=== PATIENT | male | born 1940 | race Caucasian/White ===

== ENCOUNTER 2017-08-10 14:16 | Inpatient (IN) | payer MEDICARE, OTHER ==
[~2017-08-10] VITALS: Ht 188 cm; Wt 110.7 kg
--- NOTE | ~2017-08-10 | CN ---
PATIENT NAME:AIDEN SHEA MEDICAL RECORD: [id number] : 38 LOCATION:D. D.2136 ADMIT DATE: 08/10/17 ACCOUNT: [id number] CONSULTING PHYSICIAN: RIMA SANTIAGO MD REFERRING PHYSICIAN: LUIS JENKINS MD DATE OF CONSULTATION: 08/13/2017 CONSULT REQUESTING PHYSICIAN: Stephanie Teresa MD REASON FOR CONSULTATION: Pulmonary hypertension and COPD. HISTORY OF PRESENT ILLNESS: Mr. Shea is a 77-year-old gentleman who has history of end-stage renal disease. The patient was admitted for shortness of breath and swelling of the lower extremities. He denies any fever and chills. No night sweats. There is no wheezing. REVIEW OF THE SYSTEMS: As in history of present illness. PAST MEDICAL HISTORY: 1. COPD. 2. History of pneumonia. 3. Congestive heart failure. 4. Hypertension. 5. Edema. 6. Gastroesophageal reflux disease. PAST SURGICAL HISTORY: 1. Herniorrhaphy. 2. Appendectomy. 3. Left arm fistula placement. ALLERGIES: HE IS ALLERGIC TO ROCEPHIN AND DOXYCYCLINE. MEDICATIONS: He is on Advair inhaler. His other medications are reviewed. PERSONAL AND SOCIAL HISTORY: The patient is still smoking cigar off and on. He is nondrinker. FAMILY HISTORY: Significant for cardiovascular disease and cancer. PHYSICAL EXAMINATION: GENERAL: Now, the patient is lying comfortably. He is not in acute distress. VITAL SIGNS: Blood pressure is 124/60, pulse is 86, respiration is 16, temperature 97.5, SpO2 is 96% on 3 liters nasal cannula. HEENT: Conjunctivae are pink. Sclerae not icteric. NECK: Supple. No JVD. CHEST: The chest excursion is minimal on both sides. There is no wheeze and no rale. The excursion is minimal on the right side. There is crackle on the right side. HEART: Rate and rhythm regular daily. There is grade III/ systolic murmur at aortic area. ABDOMEN: Abdomen is soft. Bowel sounds present. No hepatosplenomegaly. RECTAL: Deferred. EXTREMITIES: No cyanosis. No clubbing. No pedal edema. SKIN: The skin is warm. Normal turgor. CONSULT REPORT [id number] AIDEN SHEA CENTRAL NERVOUS SYSTEM: The patient is awake and alert. There are no obvious cranial nerve abnormalities. The gait was not tested. CHEST RADIOGRAPH: There is elevated right hemidiaphragm. There is atelectasis in the lower lobe. CBC; WBC 6.1, hemoglobin 9.3, hematocrit 27.6, platelet count 116. IMPRESSION: 1. Chronic hypoxic respiratory failure. 2. Zjvclcir-cd-swyraa pulmonary hypertension secondary to severe aortic stenosis. 3. COPD without exacerbation. 4. 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 5. End-stage renal disease. 6. Anemia secondary to chronic kidney disease. RECOMMENDATION: 1. Continue Advair inhaler. Start albuterol/ipratropium nebulizer. 2. Get CT scan of the chest with contrast to rule out any obstructive cause of the right lower lobe. The patient will need outpatient PFTs. As the patient has severe aortic stenosis, the pulmonary hypertension is most likely secondary to aortic stenosis. He needs further workup for the pulmonary hypertension. Dr. Teresa, thank you for involving me in the care of Mr. Shea. TRANSINT:[id number] Voice Confirmation ID: [id number] DOCUMENT ID: [id number] RIMA SANTIAGO MD CC: STEPHANIE TERESA MD [id number] DICTATION DATE: 08/13/17 1615 SHELL MACHINE OPERATOR: 08/13/17 1753 ADM IN [place] [id number] [place] [id number]
--- NOTE | ~2017-08-10 | OP ---
PATIENT NAME: AIDEN ESPITIA MEDICAL RECORD: [id number] :38 LOCATION:D. D.2136 ADMISSION DATE:08/10/17 SURGEON: RIMA SANTIAGO MD DATE OF OPERATION: 08/15/2017 PROCEDURE: Fiberoptic bronchoscopy. INDICATION: Mr. Espitia is a 77-year-old gentleman who has an abnormal chest radiograph. CT scan confirmed atelectasis and infiltrate in the right lower lobe with air bronchogram. Fiberoptic bronchoscopy was carried out to inspect the airway for any obstruction as well as to obtain specimens for culture and sensitivity. MONITORING: EKG, pulse, and blood pressure were monitored throughout the procedure. MEDICATIONS: Versed 4 mg IV in divided doses, morphine 4 mg times 1, atropine 0.6 mg times 1, fentanyl 50 mcg times 1. PROCEDURE IN DETAIL: After obtaining conscious sedation, fiberoptic bronchoscope was easily passed through the mouth. The epiglottis was normal. The vocal cords were normal, moving equally on phonation. The pyriform sinuses were normal. The main trachea was normal. The andrew was sharp. There was total occlusion with coughing exploration of the right main bronchus. No endobronchial lesion was seen. There were only 2 segments to the right upper lobe. The bronchus intermedius was normal. There was root to main tree, right middle lobe segment. There were bronchitic changes of the lower segments. There was also bronchomalacia. With expiration and coughing, the right lower lobe segment totally occluded. No endobronchial lesion was seen as such. The left main bronchus was normal. There was also bronchomalacia. No endobronchial lesion was seen. Specimen washing was obtained for routine culture and sensitivity, AFB and fungus and cytology. The patient will need a repeat CT scan of the chest after 3 months. TRANSINT:[id number] Voice Confirmation ID: [id number] DOCUMENT ID: [id number] RIMA SANTIAGO MD CC: JAZMIN AGUILAR [id number] DICTATION DATE: 08/15/17 1453 CLINICAL STAFF EDUCATOR: 08/15/17 1532 ADM IN [place] [id number]
[~2017-08-10 14:16] MED LIST: ASPIRIN81 MG PO; B-12 DOTS500 MCG PO; DOXYCYCLINE HY100 M2 PO; FISH OIL 1,2001 CAP PO; FOLIC ACID1 MG PO; KENALOG 0.1 % O15 GM TOPICAL; LASIX40 MG PO; LOPRESSOR25 MG PO; PLAVIX75 MG PO; TOPROL XL100 MG PO; TOPROL XL25 MG PO; TUMS500 MG PO; ULTRAM50 MG PO; VITAMIN B650 MG PO; VITAMIN D31000 UNIT PO; ZOCOR40 MG PO; ZYLOPRIM100 MG PO
[2017-08-10 17:43] VITALS: BP 107/54; BMI 31.5
[2017-08-10] MEDS ORDERED: ZYLOPRIM100 MG PO (21:16)
[2017-08-10] MEDS ORDERED: SYMBICORT 16010.2 GM INH (21:17)
[2017-08-10] MEDS ORDERED: BENADRYL25 MG PO (21:18)
[2017-08-10] MEDS ORDERED: FLUTICASONE PRO16 GM NASAL (21:19)
[2017-08-10 21:39] VITALS: BP 117/51
[2017-08-11 03:30] VITALS: BP 123/51
[2017-08-11 08:56] VITALS: BP 121/47
[2017-08-11 12:15] VITALS: BP 114/61
[2017-08-11 13:51] VITALS: Ht 188 cm; Wt 110.7 kg
[2017-08-11 19:00] VITALS: BP 119/42
[2017-08-12 04:00] VITALS: BP 102/46
[2017-08-12 06:10] LABS: BASOPHILS 0.2 % (0-2); EOSINOPHILS 11.6 % (0-7); HEMATOCRIT 29.1 % (42.0-54.0); HEMOGLOBIN 9.5 g/dL (13.5-17.5); IMMATURE GRANULOCYTES 0.3 % (0-5); LYMPHOCYTES 13.8 % (15-50); MCHC 32.6 g/dL (31.0-37.0); MEAN PLATELET VOLUME 10.7 fL (7.4-10.4); MONOCYTES 13.5 % (2-11); NEUTROPHILS 60.6 % (40-80); RBC 2.88 10x6/uL (4.20-6.10); RDW 13.5 % (11.5-14.5); WBC 6.2 10x3/uL (4.8-10.8)
[2017-08-12 06:13] LABS: PLATELET COUNT 127 10x3/uL (130-400)
[2017-08-12 06:36] LABS: ALBUMIN 2.9 g/dL (3.4-5.0); ANION GAP 15.4 mmol/L (8-16); BILIRUBIN - TOTAL 0.3 mg/dL (0.2-1.3); CALCIUM 8.2 mg/dL (8.5-10.1); CARBON DIOXIDE 27.4 mmol/L (21.0-32.0); CREATININE - SERUM 8.4 mg/dL (0.6-1.3); PHOSPHOROUS 5.9 mg/dL (2.5-4.9); POTASSIUM - SERUM 4.8 mmol/L (3.5-5.1); PROTEIN - SERUM 6.2 g/dL (6.4-8.2)
[2017-08-12 08:23] VITALS: BP 100/54
[2017-08-12 11:35] VITALS: BP 122/47
[2017-08-12 22:25] VITALS: BP 122/57
[2017-08-13 01:27] VITALS: BP 121/53
[2017-08-13 06:26] LABS: BASOPHILS 0.2 % (0-2); EOSINOPHILS 9.8 % (0-7); HEMATOCRIT 27.6 % (42.0-54.0); HEMOGLOBIN 9.3 g/dL (13.5-17.5); IMMATURE GRANULOCYTES 0.3 % (0-5); LYMPHOCYTES 14.5 % (15-50); MCH 33.7 pg (26.0-34.0); MCHC 33.7 g/dL (31.0-37.0); MEAN PLATELET VOLUME 10.3 fL (7.4-10.4); MONOCYTES 9.3 % (2-11); NEUTROPHILS 65.9 % (40-80); PLATELET COUNT 116 10x3/uL (130-400); RBC 2.76 10x6/uL (4.20-6.10); RDW 13.3 % (11.5-14.5); WBC 6.1 10x3/uL (4.8-10.8)
[2017-08-13 06:28] VITALS: BP 138/56
[2017-08-13 07:05] LABS: ALBUMIN 2.8 g/dL (3.4-5.0); BILIRUBIN - TOTAL 0.3 mg/dL (0.2-1.3); CALCIUM 8.2 mg/dL (8.5-10.1); CARBON DIOXIDE 28.2 mmol/L (21.0-32.0); CREATININE - SERUM 7.1 mg/dL (0.6-1.3); POTASSIUM - SERUM 4.2 mmol/L (3.5-5.1); PROTEIN - SERUM 5.9 g/dL (6.4-8.2)
[2017-08-13 08:16] VITALS: BP 91/43
[2017-08-13 11:43] VITALS: BP 121/50
[2017-08-13 14:24] LABS: HEPATITIS C ANTIBODY <0.1 (0.0-0.9)
[2017-08-13 15:40] VITALS: BP 124/60
[2017-08-13 19:00] VITALS: BP 142/68
[2017-08-14 00:35] VITALS: BP 121/56
[2017-08-14 04:00] VITALS: BP 150/74
[2017-08-14 06:08] LABS: BASOPHILS 0.2 % (0-2); EOSINOPHILS 6.5 % (0-7); HEMATOCRIT 27.6 % (42.0-54.0); HEMOGLOBIN 9.2 g/dL (13.5-17.5); IMMATURE GRANULOCYTES 0.5 % (0-5); LYMPHOCYTES 13.9 % (15-50); MCH 33.3 pg (26.0-34.0); MCHC 33.3 g/dL (31.0-37.0); MEAN PLATELET VOLUME 10.4 fL (7.4-10.4); NEUTROPHILS 68.9 % (40-80); PLATELET COUNT 128 10x3/uL (130-400); RBC 2.76 10x6/uL (4.20-6.10); RDW 13.5 % (11.5-14.5); WBC 6.4 10x3/uL (4.8-10.8)
[2017-08-14 06:29] LABS: ALBUMIN 2.6 g/dL (3.4-5.0); ANION GAP 15.7 mmol/L (8-16); BILIRUBIN - TOTAL 0.34 mg/dL (0.2-1.3); CALCIUM 8.2 mg/dL (8.5-10.1); CARBON DIOXIDE 25.5 mmol/L (21.0-32.0); CREATININE - SERUM 8.2 mg/dL (0.6-1.3); PHOSPHOROUS 3.4 mg/dL (2.5-4.9); POTASSIUM - SERUM 4.2 mmol/L (3.5-5.1); PROTEIN - SERUM 5.9 g/dL (6.4-8.2)
[2017-08-14 08:35] VITALS: BP 132/68
[2017-08-14 12:49] VITALS: BP 102/55
[2017-08-14 16:01] VITALS: BP 95/55
[2017-08-14 21:38] VITALS: BP 105/58
[2017-08-15] VITALS (9 sets, daily range): BP systolic 87–124; BP diastolic 41–63
[2017-08-15 05:20] LABS: BASOPHILS 0.1 % (0-2); EOSINOPHILS 6.5 % (0-7); HEMATOCRIT 25.9 % (42.0-54.0); HEMOGLOBIN 8.6 g/dL (13.5-17.5); IMMATURE GRANULOCYTES 0.7 % (0-5); LYMPHOCYTES 9.7 % (15-50); MCH 32.7 pg (26.0-34.0); MCHC 33.2 g/dL (31.0-37.0); MCV 98.5 fL (80.0-100.0); MEAN PLATELET VOLUME 10.4 fL (7.4-10.4); MONOCYTES 8.9 % (2-11); NEUTROPHILS 74.1 % (40-80); PLATELET COUNT 142 10x3/uL (130-400); RBC 2.63 10x6/uL (4.20-6.10); RDW 13.5 % (11.5-14.5); WBC 6.8 10x3/uL (4.8-10.8)
[2017-08-15 06:00] LABS: ALBUMIN 2.5 g/dL (3.4-5.0); ANION GAP 14.3 mmol/L (8-16); BILIRUBIN - TOTAL 0.3 mg/dL (0.2-1.3); CALCIUM 7.7 mg/dL (8.5-10.1); CARBON DIOXIDE 27.6 mmol/L (21.0-32.0); CREATININE - SERUM 6.9 mg/dL (0.6-1.3); POTASSIUM - SERUM 3.9 mmol/L (3.5-5.1); PROTEIN - SERUM 5.9 g/dL (6.4-8.2)
[2017-08-15 13:08] LABS: BASOPHILS 0.4 % (0-2); EOSINOPHILS 6.4 % (0-7); HEMATOCRIT 26.9 % (42.0-54.0); HEMOGLOBIN 8.9 g/dL (13.5-17.5); IMMATURE GRANULOCYTES 0.9 % (0-5); MCH 32.8 pg (26.0-34.0); MCHC 33.1 g/dL (31.0-37.0); MCV 99.3 fL (80.0-100.0); MEAN PLATELET VOLUME 9.7 fL (7.4-10.4); MONOCYTES 11.4 % (2-11); NEUTROPHILS 71.9 % (40-80); PLATELET COUNT 125 10x3/uL (130-400); RBC 2.71 10x6/uL (4.20-6.10); RDW 13.5 % (11.5-14.5); WBC 7.8 10x3/uL (4.8-10.8)
[2017-08-15 13:24] LABS: APTT 25.5 SECONDS (22.8-39.4); INR 1.16 (0.85-1.17); PROTIME 14.4 SECONDS (11.6-15.0)
[2017-08-15] MEDS ORDERED: AMPICILLIN1.5 G/VIA2 IV (16:36)
[2017-08-15] MEDS ORDERED: LEVAQUIN250 MG PO (16:37)
[2017-08-16] VITALS (8 sets, daily range): BP systolic 81–112; BP diastolic 45–74
[2017-08-16 05:29] LABS: BASOPHILS 0.3 % (0-2); EOSINOPHILS 9.4 % (0-7); HEMATOCRIT 25.5 % (42.0-54.0); HEMOGLOBIN 8.3 g/dL (13.5-17.5); IMMATURE GRANULOCYTES 0.6 % (0-5); LYMPHOCYTES 8.5 % (15-50); MCH 32.3 pg (26.0-34.0); MCHC 32.5 g/dL (31.0-37.0); MCV 99.2 fL (80.0-100.0); MEAN PLATELET VOLUME 10.2 fL (7.4-10.4); MONOCYTES 10.1 % (2-11); NEUTROPHILS 71.1 % (40-80); PLATELET COUNT 137 10x3/uL (130-400); RBC 2.57 10x6/uL (4.20-6.10); RDW 13.7 % (11.5-14.5); WBC 6.6 10x3/uL (4.8-10.8)
[2017-08-16 06:00] LABS: ALBUMIN 2.4 g/dL (3.4-5.0); ANION GAP 13.9 mmol/L (8-16); BILIRUBIN - TOTAL 0.29 mg/dL (0.2-1.3); CALCIUM 7.5 mg/dL (8.5-10.1); CARBON DIOXIDE 26.3 mmol/L (21.0-32.0); CREATININE - SERUM 7.9 mg/dL (0.6-1.3); PHOSPHOROUS 3.6 mg/dL (2.5-4.9); POTASSIUM - SERUM 4.2 mmol/L (3.5-5.1)
[2017-08-16 06:17] LABS: % SATURATION 9 % (15-55); IRON 21 ug/dl (35-150); TOTAL IRON BIND CAPACITY 219 ug/dl (260-445); UNSAT IRON BIND CAPACITY 198 ug/dl (150-375)
[2017-08-17] VITALS (8 sets, daily range): BP systolic 90–124; BP diastolic 44–77
[2017-08-17 04:28] LABS: BASOPHILS 0.2 % (0-2); EOSINOPHILS 10.7 % (0-7); HEMATOCRIT 22.9 % (42.0-54.0); IMMATURE GRANULOCYTES 1.8 % (0-5); LYMPHOCYTES 10.1 % (15-50); MCH 32.3 pg (26.0-34.0); MCHC 32.3 g/dL (31.0-37.0); MEAN PLATELET VOLUME 9.8 fL (7.4-10.4); MONOCYTES 10.6 % (2-11); NEUTROPHILS 66.6 % (40-80); PLATELET COUNT 124 10x3/uL (130-400); RBC 2.29 10x6/uL (4.20-6.10); RDW 13.9 % (11.5-14.5)
[2017-08-17 04:36] LABS: HEMOGLOBIN 7.4 g/dL (13.5-17.5)
[2017-08-17 04:53] LABS: ALBUMIN 2.1 g/dL (3.4-5.0); ANION GAP 12.1 mmol/L (8-16); BILIRUBIN - TOTAL 0.3 mg/dL (0.2-1.3); CALCIUM 7.3 mg/dL (8.5-10.1); CARBON DIOXIDE 26.8 mmol/L (21.0-32.0); CREATININE - SERUM 6.3 mg/dL (0.6-1.3); POTASSIUM - SERUM 3.9 mmol/L (3.5-5.1); PROTEIN - SERUM 5.4 g/dL (6.4-8.2)
[2017-08-17 14:08] LABS: ACID FAST SMEAR Negative (()); AFB SPECIMEN PROCESSING Concentration (())
[2017-08-18 00:30] VITALS: BP 120/52
[2017-08-18 04:00] VITALS: BP 121/057
[2017-08-18 05:09] LABS: BASOPHILS 0.1 % (0-2); EOSINOPHILS 8.8 % (0-7); HEMATOCRIT 25.5 % (42.0-54.0); HEMOGLOBIN 8.3 g/dL (13.5-17.5); LYMPHOCYTES 7.8 % (15-50); MCHC 32.5 g/dL (31.0-37.0); MCV 98.5 fL (80.0-100.0); MEAN PLATELET VOLUME 9.3 fL (7.4-10.4); MONOCYTES 11.4 % (2-11); NEUTROPHILS 69.9 % (40-80); PLATELET COUNT 145 10x3/uL (130-400); RBC 2.59 10x6/uL (4.20-6.10); RDW 14.2 % (11.5-14.5); WBC 7.5 10x3/uL (4.8-10.8)
[2017-08-18 05:23] LABS: ALBUMIN 2.3 g/dL (3.4-5.0); ANION GAP 15.1 mmol/L (8-16); BILIRUBIN - TOTAL 0.33 mg/dL (0.2-1.3); CALCIUM 7.3 mg/dL (8.5-10.1); CARBON DIOXIDE 24.9 mmol/L (21.0-32.0); CREATININE - SERUM 7.4 mg/dL (0.6-1.3); PHOSPHOROUS 3.3 mg/dL (2.5-4.9); PROTEIN - SERUM 5.7 g/dL (6.4-8.2)
[2017-08-18 07:50] VITALS: BP 123/64
[2017-08-18 11:47] VITALS: BP 119/54
[2017-08-20 11:18] LABS: FUNGUS STAIN Final report (())
== END 2017-08-18 18:15 | DRG 314 ==
LOC: D.M2 14:16
PROVIDERS: Internal Medicine; Internal Medicine Nephrology; Internal Medicine Pulmonary Disease
PROC: 0BD58ZX Extraction of Right Middle Lobe Bronchus, Via Natural or Artificial Opening Endoscopic, Diagnostic (ICD-10-PCS; principal; 2017-08-15 14:01)
DX: I27.20 Pulmonary hypertension, unspecified (principal); N18.6 End stage renal disease; J11.00 Influenza due to unidentified influenza virus with unspecified type of pneumonia; I13.2 Hypertensive heart and chronic kidney disease with heart failure and with stage 5 chronic kidney disease, or end stage renal disease; I50.20 Unspecified systolic (congestive) heart failure; J98.11 Atelectasis; J96.11 Chronic respiratory failure with hypoxia; Z99.2 Dependence on renal dialysis; K21.9 Gastro-esophageal reflux disease without esophagitis; D63.1 Anemia in chronic kidney disease; I35.0 Nonrheumatic aortic (valve) stenosis; E78.5 Hyperlipidemia, unspecified; Z86.73 Personal history of transient ischemic attack (TIA), and cerebral infarction without residual deficits; J98.09 Other diseases of bronchus, not elsewhere classified; G72.89 Other specified myopathies; Z72.0 Tobacco use

== ENCOUNTER 2017-08-18 16:29 | Inpatient (IN) | payer MEDICARE, OTHER | END 2017-08-22 14:14 | disposition home health service (06) | DRG 91 | LOC: D.REHAB 16:29 | PROC: 5A1D70Z Performance of Urinary Filtration, Intermittent, Less than 6 Hours Per Day (ICD-10-PCS; principal; 2017-08-20) | DX: G72.89 Other specified myopathies (principal); N18.6 End stage renal disease; J96.91 Respiratory failure, unspecified with hypoxia; I12.0 Hypertensive chronic kidney disease with stage 5 chronic kidney disease or end stage renal disease; J90 Pleural effusion, not elsewhere classified; J98.11 Atelectasis; Z99.2 Dependence on renal dialysis; I27.20 Pulmonary hypertension, unspecified; J44.9 Chronic obstructive pulmonary disease, unspecified; D63.1 Anemia in chronic kidney disease; E78.5 Hyperlipidemia, unspecified; J11.1 Influenza due to unidentified influenza virus with other respiratory manifestations; I65.29 Occlusion and stenosis of unspecified carotid artery; I35.0 Nonrheumatic aortic (valve) stenosis ==

== ENCOUNTER 2017-10-02 06:35 | Outpatient (CLI) | payer MEDICARE, OTHER ==
[~2017-10-02] VITALS: Ht 188 cm; Wt 114.5 kg
--- NOTE | ~2017-10-02 | HEMODYNAMI ---
PATIENT:AIDEN ESPITIA MEDICAL RECORD: [id number] : 38 LOCATION:DVINOD ADMISSION DATE: 10/02/17 Generatedon:10/02/20179:57 Patient name: AIDEN ESPITIA Patient #: [id number] SSN: : 1940 Date of study: 10/02/2017 Page: Of Hemodynamic Procedure Report Patient Data Patient Demographics Procedure consent was obtained First Name: AIDEN Gender: Male Last Name: OMKAR : 1940 Middle Initial: M Age: 77 year(s) Patient #: [id number] Race: Unknown Additional ID: [id number] Contact details [address]: [address] [place] [address] State: [place] City: [place] Zip code: [address] Past Medical History Allergies Allergen Reaction Date Comments Reported Other allergy 10/02/2017 doxycycline, cefaloxone Admission Admission Data Admission Date: 10/02/2017 Admission Time: 6:35 Admit Source: Other Procedure Procedure Types Cath Procedure Diagnostic Procedure C [facility] w/Coronaries Aortic Root Angiography Sedation Charges Moderate Sedation up to 15 minutes PCI Procedure Coronary Stent Coronary Stent Initial Procedure Description Procedure Date Procedure Date: 10/02/2017 Procedure Start Time: 9:28 Procedure End Time: 9:56 Procedure Staff Name Function Bryant Mares MD Performing Physician Kory Whitlock RT Scrub Dragan Rocha RN Nurse Jeni Perdue RT Monitor Procedure Data Cath Procedure Fluoroscopy Diagnostic fluoroscopy Total fluoroscopy Time: 6.5 time: 6.5 min min Diagnostic fluoroscopy Total fluoroscopy dose: dose: 864.41 mGy 864.41 mGy Contrast Material Contrast Material Type Amount (ml) Isovue 300 153 Entry Location Entry Primary Successful Side Size Upsize Upsize Entry Closure Succes sful Closure Location (Fr) 1 (Fr) 2 (Fr) Remarks Device Remarks Femoral Right 5 Fr 6 Fr Exoseal artery Short Estimated blood loss: 10 ml Diagnostic catheters Device Type Used For End Catheter Placement MULTIPACK JL 4.0 5Fr Left Coronary catheter Angiography MULTIPACK 3DRC 5Fr Right Coronary catheter Angiography MULTIPACK Pigtail 5 Fr Aortic Root catheter Angiography Procedure Complications No complications Procedure Medications Medication Administration Route Dosage Oxygen NC 3 l/min Lidocaine 2% added to field 20 Heparin Flush Bag added to field 2 bags (1000units/500ml NS) 0.9% NaCl I.V. 50 ml/hr Versed I.V. 1 mg Fentanyl I.V. 50 mcg Heparin Bolus I.V. 79900 units Versed I.V. 1 mg Fentanyl I.V. 50 mcg Plavix P.O. 600 mg Hemodynamics Rest Heart Rate: 99 (bpm) Snapshots Pre Cath Intra NCS Post Cath Vital Signs Time Heart Resp SPO2 etCO2 NIBP Rhythm Pain Sedation Rate (ipm) (%) (mmHg) (mmHg) Status Level (bpm) 9:13:43 93 28 94 12.6 124/68(90) NSR 0 (11) 10(A) , No pain 9:17:57 94 30 96 19.3 117/66(90) NSR 0 (11) 10(A) , No pain 9:22:13 95 19 98 17.1 116/57(71) NSR 0 (11) 10(A) , No pain 9:26:25 91 22 96 15.6 106/62(82) NSR 0 (11) 10(A) , No pain 9:30:37 91 20 95 14.8 101/57(73) NSR 0 (11) 9(A) , No pain 9:34:49 95 21 95 46.9 100/55(73) NSR 0 (11) 9(A) , No pain 9:39:01 94 22 94 44.6 100/54(71) NSR 0 (11) 9(A) , No pain 9:43:10 97 23 94 43.1 93/54(69) NSR 0 (11) 9(A) , No pain 9:47:24 95 23 94 42.4 86/47(63) NSR 0 (11) 9(A) , No pain 9:51:32 94 22 94 42.4 98/53(72) NSR 0 (11) 10(A) , No pain 9:55:44 95 19 96 40.9 104/54(71) NSR 0 (11) 10(A) , No pain Medications Time Medication Route Dose Verified Delivered Reason Notes Effectiveness by by 9:12:48 Oxygen NC 3 Bryant Buffie used for l/min Francisco Rocha RN procedure 9:12:55 Lidocaine 2% added 20ml Bryant Bryant for local to vial Francisco Mares MD anesthetic field 9:13:01 Heparin Flush added 2 bags Bryant Bryant used for Bag to Francisco Mares MD procedure (1000units/500ml field NS) 9:13:11 0.9% NaCl I.V. 50 Bryant Buffie Per physician ml/hr Francisco Rocha RN 9:24:48 Versed I.V. 1 mg Bryant Buffie for sedation Francisco Rocha RN 9:24:55 Fentanyl I.V. 50 mcg Bryant Buffie for sedation Francisco Rocha RN 9:32:30 Versed I.V. 1 mg Bryant Buffie for sedation Francisco Rocha RN 9:32:34 Fentanyl I.V. 50 mcg Bryant Buffie for sedation Francisco Rocha RN 9:42:10 Heparin Bolus I.V. 11,000 Bryant Buffie for verifi ed units Francisco Rocha RN anticoagulation with dr mares 9:56:07 Plavix P.O. 600 mg Bryant Buffie for Francisco Rocha RN antiplatelet therapy Procedure Log Time Note 8:45:10 Informed consent obtained and on chart 8:45:13 Admit Source: Other 8:45:27 Diagnostic Cath status Elective 8:45:28 Time tracking: Regular hours 8:45:31 Plan of Care:Hemodynamics will remain stable., Cardiac rhythm will remain stable., Comfort level will be maintained., Respiratory function will remain adequate., Patient/ family verbilizes understanding of procedure., Procedure tolerated without complication., Recovers from procedure without complications.. 8:45:40 H&P Date Dictated: 09/30/2017 Within 30 days and on chart., H&P Addendum completed by physician on day of procedure. (MUST COMPLETE FOR ALL OUTPATIENTS). 8:52:47 Kory Whitlock RT(R) sent for patient. Start room use. 9:00:36 Patient received from Pre/Post Procedure Room to [facility] 3 Alert and oriented. Tansferred to table in Supine position. 9:00:37 Warm blankets applied, and janette hugger turned on for patient comfort. 9:00:37 Correct patient and procedure confirmed by team. 9:00:37 ECG and BP/O2 sat monitors applied to patient. 9:00:38 Full Disclosure recording started 9:12:33 Vital chart was started 9:12:40 Baseline sample Acquired. 9:12:44 Rhythm: sinus rhythm 9:12:48 Oxygen 3 l/min NC was administered by Dragan Rocha RN; used for procedure; 9:12:55 Lidocaine 2% 20ml vial added to field was administered by Bryant Mares MD; for local anesthetic; 9:13:01 Heparin Flush Bag (1000units/500ml NS) 2 bags added to field was administered by Bryant Mares MD; used for procedure; 9:13:11 0.9% NaCl 50 ml/hr I.V. was administered by Dragan Rocha RN; Per physician; 9:13:27 Pre-procedure instructions explained to patient. 9:13:28 Pre-op teaching completed and patient verbalized understanding. 9:13:29 Family in patients room. 9:13:31 Patient NPO since Midnight. 9:13:58 Patient allergic to Other allergydoxycycline, cefaloxone 9:14:00 Is the patient allergic to Iodine/contrast media? No. 9:14:02 Is patient on blood thinner?No 9:14:07 Patient diabetic? No. 9:14:10 Previous problem with sedation/anesthesia? No ? 9:14:11 Snore? Yes 9:14:12 Sleep apnea? No 9:14:13 Deviated septum? No 9:14:14 Opens mouth fully? Yes 9:14:14 Sticks out tongue? Yes 9:14:17 Airway obstruction? Yes COPD 9:14:30 Dentures? Yes Uppers in tight 9:14:33 Pre procedure: right dorsailis pedis pulse 2+ Normal; easily identifiable; not easily obliterated 9:14:35 Patient pain scale 0/10 ?. 9:14:44 IV patent on arrival in left hand with 0.9% NaCl at [facility]. 9:14:46 Lab results completed and on chart. 9:14:50 Right groin area was prepped with chlora-prep and draped in sterile fashion 9:14:50 Alarms reviewed by RMana N. 9:14:51 Sharps counted by scrub and verified by R.N. 9:14:56 Use device set Femoral Dx 9:14:56 ACIST Syringe (57182) opened to sterile field. 9:14:57 Bag Decanter (2002S) opened to sterile field. 9:14:57 Medline Cath Pack ([id number]) opened to sterile field. 9:14:58 SHEATH 5FR [place] (PGG148) opened to sterile field. 9:15:01 DIAGNOSTIC WIRE .035 260cm J wire (717558) opened to sterile field. 9:15:02 ACIST Hand Control (95703) opened to sterile field. 9:15:03 ACIST Manifold (84689) opened to sterile field. 9:15:04 DIAGNOSTIC Multipack 5Fr catheter set (BP5750) opened to sterile field. 9:15:04 Tegaderm 4 x 4 (1626W) opened to sterile field. 9:15:05 PERCUTANEOUS ENTRY 19GA needle opened to sterile field. 9:21:44 Final Timeout: patient, procedure, and site verified with staff and physician. All members of the team are in agreement. 9:21:46 Right groin site verified by team. 9:21:48 Physical assessment completed. ASA score P 2 - A patient with mild systemic disease as per Bryant Mares MD. 9:21:50 Sedation plan: IV Moderate Sedation Medication:Versed, Fentanyl 9:24:43 Zero performed for pressure channel P1 9:24:48 Versed 1 mg I.V. was administered by Dragan Rocha RN; for sedation; 9:24:55 Fentanyl 50 mcg I.V. was administered by Dragan Rocha RN; for sedation; 9:28:21 Procedure started. 9:28:24 Local anesthetic to right femoral artery with Lidocaine 2% by Bryant Mares MD.INITIAL ACCESS ONLY 9:28:33 A 5 Fr sheath was inserted into the Right Femoral artery 9:30:06 A MULTIPACK JL 4.0 5Fr catheter was advanced over the wire and used for Left Coronary Angiography. 9:32:30 Versed 1 mg I.V. was administered by Dragan Rocha RN; for sedation; 9:32:34 Fentanyl 50 mcg I.V. was administered by Dragan Rocha RN; for sedation; 9:33:25 Catheter removed. 9:33:37 A MULTIPACK 3DRC 5Fr catheter was advanced over the wire and used for Right Coronary Angiography. 9:34:49 Catheter removed. 9:36:11 A MULTIPACK Pigtail 5 Fr catheter was advanced over the wire and used for Aortic Root Angiography. 9:36:37 Injector settings: Ml/sec: 15, Volume: 30, 9:36:57 Procedure type changed to Cath procedure, Diagnostic procedure, LHC, LHC w/Coronaries, Aortic Root Angiography, Sedation Charges, Moderate Sedation up to 15 minutes, PCI procedure, Coronary Stent, Coronary Stent Initial 9:38:01 Use device set MARES PCI 9:38:03 INFLATOR Merit BasixCompak (DM8789) opened to sterile field. 9:38:04 TUBING High Pressure Extension Tubing (Mares) ([id number]) opened to sterile field. 9:38:08 BMW 300cm [place] 2 J wire ([id number]) opened to sterile field. 9:38:52 GUIDE 6FR AR 1.0 catheter ([id number]) opened to sterile field. 9:40:47 Catheter removed. 9:40:54 Sheath upsized to a 6 Fr Short. 9:41:03 6 Fr AR 1.0 guide catheter was inserted over the wire 9:41:07 BMW wire advanced. 9:42:10 Heparin Bolus 11,000 units I.V. was administered by Dragan Rocha RN; for anticoagulation; verified with dr mares 9:44:52 Inflation number: 1 A EMERGE OTW 2.5 x 15 balloon ([id number]) was prepped and advanced across the Mid RCA, then inflated to 14 CHANDLER for 0:19 (min:sec). 9:45:37 Balloon removed over the wire. 9:49:44 Inflation Number: 2 A INTEGRITY OTW 3.5 X 18 stent ([id number]) was prepped and advanced across the Mid RCA. The stent was deployed at 15 CHANDLER for 0:21 (min:sec). 9:50:29 Stent catheter was removed intact over wire. 9:50:32 Wire removed. 9:50:32 Guide catheter removed. 9:50:50 Sheath removed intact; hemostasis achieved with Exoseal to the Right Femoral artery. 9:50:52 Procedure ended.(Physican Out) 9:51:03 Fluoroscopy time 06.50 minutes. 9:51:07 Flurop Dose total: 864.41 9:51:07 Fluoroscopy dose: 864.41 mGy 9:51:13 Contrast amount:Isovue 300 153ml. 9:51:45 Sharps counted by scrub and verified by R.N. 9:51:46 Insertion/operative site no bleeding no hematoma. 9:51:49 Post-op/insertion site Right Femoral artery dressed using a 4 x 4 and Tegaderm. 9:51:52 EXOSEAL 6Fr (EX600) opened to sterile field. 9:52:00 Post right femoral artery:stable, clean and dry 9:52:01 Post Procedure Pulses reassessed and unchanged 9:52:03 Post-procedure physical assessment completed. ASA score P 2 - A patient with mild systemic disease as per Bryant Mares MD. 9:52:05 Post procedure rhythm: unchanged. 9:52:08 Estimated blood loss: 10 ml 9:52:09 Post procedure instruction explained to patient.Patient verbalizes understanding. 9:52:09 Patient needs reinforcement of post procedure teaching. 9:52:13 Procedure Complication : No complications 9:53:54 SHEATH 6Fr Prelude ([id number]) opened to sterile field. 9:54:39 Procedure and supply charges have been captured, reviewed, submitted and are correct. 9:56:07 Plavix 600 mg P.O. was administered by Dragan Rocha RN; for antiplatelet therapy; 9:56:28 Vital chart was stopped 9:56:29 See physician's report for complete and final results. 9:56:30 Report given to Pre/Post Procedure Room. 9:56:33 Patient transfered to Pre/Post Procedure Room with Stretcher. 9:56:40 Procedure ended. 9:56:40 Full Disclosure recording stopped 9:56:45 End room use (Document Last) Intervention Summary Intervention Notes Time ActionType Lesion and Equipment Action# Pressure Duration Attributes Used 9:44:52 Inflate Mid RCA EMERGE OTW 1 14 00:19 balloon 2.5 x 15 balloon ([id number]) 9:49:44 Place stent Mid RCA INTEGRITY 2 15 00:21 OTW 3.5 X 18 stent ([id number]) Device Usage Item Name Manufacture Quantity Catalog Number Hospital Part Current Min imal Lot# / Charge Number Stock Stock Serial# Code ACIST Acist 1 76060 307338 707245 176381 20 Syringe Medical (50864) Systems Inc Bag Decanter Microtek 1 2001S 618266 94503 247636 5 () Medical Inc. Medline Cath Cardinal 1 [id number] 123633 87078 176539 5 Pack Health ([id number]) SHEATH 5FR Terumo 1 IRE803 258423 611580 532890 40 [place] (DAB809) DIAGNOSTIC [place] 1 950997 198036 468436 716029 30 WIRE .035 260cm J wire (755731) ACIST Hand Acist 1 02116 779120 573945 203691 5 Control Medical (86157) Systems Inc ACIST Acist 1 73732 599356 538829 719154 5 Manifold Medical (19713) Systems Inc DIAGNOSTIC Cardinal 1 RK7226 649317 96586 229672 30 Multipack Health 5Fr catheter set (YH3722) Tegaderm 4 x 3M 1 1626W 564965 106480 748258 5 4 (1626W) PERCUTANEOUS [facility] 1 M61458 727271 694283 5 ENTRY 19GA needle MULTIPACK JL Cardinal 1 122793 5 4.0 5Fr Health catheter MULTIPACK Cardinal 1 592277 5 3DRC 5Fr Health catheter MULTIPACK Cardinal 1 131736 5 Pigtail 5 Fr Health catheter INFLATOR Merit 1 BR7308 383096 533372 254874 15 [facility] Enohm BasixCompak (TJ5193) TUBING High Merit 1 [id number] 517057 26073 245604 10 Pressure Medical Extension Tubing (Mares) ([id number]) BMW 300cm Lobo 1 [id number] 135889 379475 390994 5 [place] 2 Vascular J wire (8879192Q) GUIDE 6FR AR Medtronic 1 UZ2YC01 162285 22836 482596 1 1.0 catheter (CV7ZK75) EMERGE OTW Superior 1 [id number] 573255 849110 466646 5 [id number] 2.5 x 15 Scientific balloon ([id number]) INTEGRITY Medtronic 1 [id number] 721747 606780 9 [id number] OTW 3.5 X 18 stent ([id number]) EXOSEAL 6Fr Cardinal 1 EX600 524975 078843 887629 10 (EX600) Health SHEATH 6Fr Merit 1 [id number] 374953 166410 107749 5 [facility] Medical ([id number]) Signature Audit Boyd Stage Time Signature Unsigned Intra-Procedure 10/02/2017 Jeni 9:56:58 AM Counts RT(R) Signatures Monitor : Jeni Signature : Counts RT Date : Time : [address] [address]
[~2017-10-02 06:35] MED LIST changes: +AMPICILLIN TRI250 MG PO; +AMPICILLIN1.5 G/VIA2 IV; +BENADRYL25 MG PO; +FLUTICASONE PRO16 GM NASAL; +LEVAQUIN250 MG PO; +SYMBICORT 16010.2 GM INH
[2017-10-02] MEDS ORDERED: ZYLOPRIM100 MG PO (07:31)
[2017-10-02] MEDS ORDERED: LASIX80 MG PO (07:31)
[2017-10-02] MEDS ORDERED: TUMS500 MG (07:32)
[2017-10-02] MEDS ORDERED: MIDAMOR5 MG PO (07:33)
[2017-10-02 07:38] VITALS: BP 115/58; Ht 188 cm; Wt 114.5 kg
[2017-10-02 07:38] LABS: BASOPHILS 0.3 % (0-2); EOSINOPHILS 12.9 % (0-7); HEMATOCRIT 32.9 % (42.0-54.0); HEMOGLOBIN 10.3 g/dL (13.5-17.5); IMMATURE GRANULOCYTES 0.3 % (0-5); LYMPHOCYTES 18.8 % (15-50); MCH 31.9 pg (26.0-34.0); MCHC 31.3 g/dL (31.0-37.0); MCV 101.9 fL (80.0-100.0); MEAN PLATELET VOLUME 9.3 fL (7.4-10.4); MONOCYTES 12.7 % (2-11); PLATELET COUNT 180 10x3/uL (130-400); RBC 3.23 10x6/uL (4.20-6.10); RDW 17.5 % (11.5-14.5)
[2017-10-02 07:54] LABS: CALCIUM 7.7 mg/dL (8.5-10.1); CARBON DIOXIDE 30.5 mmol/L (21.0-32.0); CREATININE - SERUM 5.3 mg/dL (0.6-1.3); POTASSIUM - SERUM 3.5 mmol/L (3.5-5.1)
[2017-10-02] MEDS ORDERED: PLAVIX75 MG PO (10:18)
== END 2017-10-02 13:42 | disposition home or self-care (01) ==
LOC: D.CATH 06:35
PROVIDERS: Internal Medicine Cardiovascular Disease
DX: I25.119 Atherosclerotic heart disease of native coronary artery with unspecified angina pectoris (principal); I35.0 Nonrheumatic aortic (valve) stenosis; Z01.812 Encounter for preprocedural laboratory examination

== ENCOUNTER 2017-12-03 16:39 | Inpatient (IN) | payer MEDICARE, OTHER ==
[~2017-12-03] VITALS: Ht 188 cm; Wt 119.5 kg
--- NOTE | ~2017-12-03 | CN ---
PATIENT NAME:AIDEN SHEA MEDICAL RECORD: [id number] : 38 LOCATION:D. D.2137 ADMIT DATE: 12/03/17 ACCOUNT: [id number] CONSULTING PHYSICIAN: RIMA SANTIAGO MD REFERRING PHYSICIAN: BRIAN HADLEY MD DATE OF CONSULTATION: 12/04/2017 CONSULT REQUESTING PHYSICIAN: Brian Hadley MD REASON FOR CONSULTATION: Acute exacerbation of COPD, jebis-rh-mpvuhgw hypoxic respiratory failure. HISTORY OF PRESENT ILLNESS: Mr. Shea is a 77-year-old gentleman very well known to me. The patient is sick for the last 2-3 days. He is coughing. He is wheezing. He has shortness of breath with mild exertion. He has worsening swelling of the lower extremities. He is also feeling feverish. REVIEW OF THE SYSTEMS: Mainly in the history of present illness. PAST MEDICAL HISTORY: 1. COPD. 2. Chronic hypoxic respiratory failure. 3. Congestive heart failure, chronic systolic dysfunction. 4. Hypertension. 5. Dependent lower extremity edema. 6. Gastroesophageal reflux disease. 7. Pulmonary hypertension of yroybldx-ce-hfgces degree secondary to severe aortic stenosis. 8. Aortic stenosis. PAST SURGICAL HISTORY: 1. Appendectomy. 2. Herniorrhaphy. 3. Left arm fistula placement. ALLERGIES: ALLERGIC TO ROCEPHIN AND DOXYCYCLINE. MEDICATIONS: Reppler was reviewed. PERSONAL AND SOCIAL HISTORY: The patient is still current everyday smoker. He is nondrinker. FAMILY HISTORY: Noncontributory. PHYSICAL EXAMINATION: GENERAL: Now, the patient is sitting in bed. He is not in acute distress. VITAL SIGNS: The blood pressure is 130/66, pulse is 109, respiration is 22, temperature is 97.7, SpO2 is 94% on 4 liters nasal cannula. HEENT: Conjunctivae are pink. Sclerae are not icteric. NECK: Neck is supple. There is elevated JVD. CHEST: There are bibasilar crackle and wheeze on forceful expiration. HEART: Rate and rhythm regular with grade II/ systolic murmur. ABDOMEN: Abdomen is soft. Bowel sounds present. No hepatosplenomegaly. RECTAL: Deferred. EXTREMITIES: No cyanosis. No clubbing. No pedal edema. CONSULT REPORT [id number] AIDEN SHEA SKIN: The skin is warm. Normal turgor. CENTRAL NERVOUS SYSTEM: The patient is awake and alert. There is no obvious cranial nerve abnormality. The gait was not tested. LABORATORY DATA: CBC; the WBC is 9.7, hemoglobin 11.2, hematocrit 33.5, and the platelet count is 160. Chemistry; sodium 132, potassium 4.2, BUN is 81, creatinine is 8, glucose 142. The D-dimer is 2.36. IMPRESSION: 1. Naesi-fj-cuucdvl hypoxic respiratory failure. 2. Bilateral pneumonia with elevated right hemidiaphragm. 3. Acute exacerbation of COPD. 4. Congestive heart failure with chronic systolic dysfunction. EF of 40%. 5. Secondary pulmonary hypertension secondary to severe aortic stenosis. The right ventricular systolic pressure in August was 57. 6. End-stage renal disease. 7. Tobacco dependence syndrome. 8. Elevation of right hemidiaphragm with atelectasis of the right lower lobe. RECOMMENDATION: 1. Discontinue Advair. Start on Brovana, budesonide nebulizer. 2. Albuterol/ipratropium nebulizer. 3. Adjust the dose of methylprednisolone. 4. Continue Rocephin and Zithromax. 5. Supplemental oxygen to keep the SpO2 above 90%. 6. Followup CTA of the chest. Followup labs and chest radiograph. Dr. Hadley, thank you for involving me in the care of Mr. Shea. TRANSINT:[id number] Voice Confirmation ID: [id number] DOCUMENT ID: [id number] RIMA SANTIAGO MD at 1806 CC: BRIAN HADLEY [id number] DICTATION DATE: 12/04/17 162 LOT ATTENDANT: 12/04/17 1741 DIS IN 12/11/17 [facility] [address] [place] [address]
--- NOTE | ~2017-12-03 | EC ---
PATIENT:AIDEN ESPITIA DATE OF SERVICE: 12/03/17 SEX: M MEDICAL RECORD: [id number] DATE OF : [birth year] LOCATION:D.M2 D.213 AGE OF PATIENT: 77 ADMISSION DATE: 12/03/17 REFERRING PHYSICIAN: INTERPRETING PHYSICIAN: PASQUALE WADE MD ECHOCARDIOGRAM REPORT ECHO CHARGES 4 ECHO COMPLETE Date: 12/04 CLINICAL DIAGNOSIS: AORTIC STENOSIS HX CAD ECHOCARDIOGRAPHIC MEASUREMENTS (adult normal given) AC root (d.<3.7cm) 3.8 cm LV Septum d (<1.2 cm> 1.5 cm Valve Excursion 1.1 cm LV Septum (systole) 1.7 cm Left Atria (s.<4.0cm> 4.2 cm LVPW d(<1.2cm) 1.8 cm RV (d.<2.3cm) 5.0 cm LVPW (sytole) 1.9 cm LV diastole(<5.6CM) 4.2 cm MV E-F(>70mm/sec) cm LV systole 3.3 cm LVOT Diameter 1.4 cm MV exc.(>10mm) 1.4 cm Est.ejection fraction (50-75%) % DOPPLER: LVIT cm/sec A 148 cm/sec E 171 cm/sec LA cm/sec RVSP 47 mmHg LVOT 135 cm/sec AOP1/2T m/s Asc. Ao 407 cm/sec RVOT cm/sec RA cm/sec PA cm/sec AV Gradient Peak 66.41mmHg AV Mean 38.46mmHg AV Area 0.4 cm MV Gradient Peak 13.28mmHg MV Mean 6.96 mmHg MV Area cm COMMENTS: Registered Radiographer: 2 TYESHA CASTILLO Coal Pulverizer Operator: 4 Dr. Wade TAPE# PACS Pericardial Effusion N DATE OF SERVICE: PROCEDURE: Transthoracic echocardiogram. FINDINGS: 1. Left ventricle has mild left ventricular hypertrophy. Inflow characteristics consistent with diastolic dysfunction. The patient has an ejection fraction of 30% to 35%. There is hyperkinetic inferior lateral wall motion with akinetic to dyskinetic anterior septal, anterior apical region. 2. The mitral valve has mild mitral regurgitation. ECHOCARDIOGRAM REPORT [id number] AIDEN ESPITIA 3. The aortic valve has severe aortic stenosis with a peak pressure gradient of 66 mmHg. 4. The left atrium is moderately dilated. 5. The mitral valve has mild mitral regurgitation with mitral annular calcification. 6. Tricuspid valve has mild tricuspid regurgitation. RVSP 47 mmHg. 7. The pericardium is normal. 8. The right ventricle was moderate to severely dilated. 9. The right atrium is moderately dilated. CONCLUSIONS: The patient has evidence of atherosclerotic heart disease in addition to an ischemic cardiomyopathy. The patient is shown to have severe aortic stenosis, which may even be underestimated given the decrease in the patient's LV systolic function. Given the endocardial surfaces were not well visualized, we can underestimate the ejection fraction and it may be reasonable to go forward with a contrasted echocardiogram to give accurate estimation of the patient's left ventricular systolic function. TRANSINT:[id number] Voice Confirmation ID: [id number] DOCUMENT ID: [id number] PASQUALE WADE MD at 1029 CC: [id number] DICTATION DATE: 12/05/17 0735 DUAL HOSE CEMENTER: 12/05/17 1028 ADM IN [place] [id number] [place] [address]
[~2017-12-03 16:39] MED LIST changes: +LASIX80 MG PO; +MIDAMOR5 MG PO; +TUMS500 MG
[2017-12-03 18:02] LABS: BASOPHILS 0.1 % (0-2); EOSINOPHILS 0.1 % (0-7); HEMATOCRIT 34.3 % (42.0-54.0); HEMOGLOBIN 11.4 g/dL (13.5-17.5); IMMATURE GRANULOCYTES 0.1 % (0-5); LYMPHOCYTES 3.6 % (15-50); MCH 33.4 pg (26.0-34.0); MCHC 33.2 g/dL (31.0-37.0); MCV 100.6 fL (80.0-100.0); MEAN PLATELET VOLUME 9.6 fL (7.4-10.4); MONOCYTES 2.1 % (2-11); PLATELET COUNT 162 10x3/uL (130-400); RBC 3.41 10x6/uL (4.20-6.10); RDW 15.6 % (11.5-14.5); WBC 9.3 10x3/uL (4.8-10.8)
[2017-12-03 18:20] LABS: APTT 28.2 SECONDS (22.8-39.4); INR 1.13 (0.85-1.17)
[2017-12-03 18:21] LABS: D-DIMER-QUANTITATIVE 2.36 ug/mLFEU (0.20-0.54)
[2017-12-03 18:24] LABS: ALBUMIN 3.2 g/dL (3.4-5.0); ALKALINE PHOSPHATASE 72 U/L (46-116); ALT (SGPT) 22 U/L (10-68); BILIRUBIN - TOTAL 0.63 mg/dL (0.2-1.3); CALC OSMOLALITY 291 mosm/kg (275-300); CHLORIDE - SERUM 93 mmol/L (98-107); CREATININE - SERUM 7.4 mg/dL (0.6-1.3); POTASSIUM - SERUM 4.2 mmol/L (3.5-5.1); PROTEIN - SERUM 7.7 g/dL (6.4-8.2); SODIUM 134 mmol/L (136-145); UREA NITROGEN 70 mg/dL (7-18); eGFR NON AFRICAN AMERICAN 8 mL/min (90-120)
[2017-12-03 18:25] LABS: GLUCOSE 151 mg/dL (74-106)
[2017-12-03 18:36] LABS: CKMB 6.4 U/L (0.0-3.6); CREATINE KINASE 293 UL (21-232)
[2017-12-03 18:41] LABS: PRO BNP 64315 pg/mL (0-450)
[2017-12-03 18:43] LABS: TROPONIN-I 2.151 ng/mL (0.000-0.060)
[2017-12-03] MEDS ORDERED: NEPHRO-VITE RX1 TAB PO (21:42)
[2017-12-03] MEDS ORDERED: BENADRYL25 MG PO (21:42)
[2017-12-03] MEDS ORDERED: MIDODRINE HCL5 MG PO (21:44)
[2017-12-03] MEDS ORDERED: PROAIR HFA8.5 GM INH (21:45)
[2017-12-03] MEDS ORDERED: ADVAIR HFA [SP]12 GM INH (21:45)
[2017-12-03 22:16] VITALS: BP 140/69
[2017-12-04 00:45] LABS: CREATINE KINASE 372 UL (21-232); TROPONIN-I 2.074 ng/mL (0.000-0.060)
[2017-12-04 01:10] LABS: CKMB 7.3 U/L (0.0-3.6)
[2017-12-04 02:38] VITALS: BP 140/69; BMI 32.1
[2017-12-04 06:22] LABS: BASOPHILS 0.1 % (0-2); EOSINOPHILS 0 % (0-7); HEMATOCRIT 33.5 % (42.0-54.0); HEMOGLOBIN 11.2 g/dL (13.5-17.5); IMMATURE GRANULOCYTES 0.2 % (0-5); LYMPHOCYTES 1.7 % (15-50); MCH 33.3 pg (26.0-34.0); MCHC 33.4 g/dL (31.0-37.0); MCV 99.7 fL (80.0-100.0); MEAN PLATELET VOLUME 9.6 fL (7.4-10.4); MONOCYTES 1.8 % (2-11); NEUTROPHILS 96.2 % (40-80); PLATELET COUNT 160 10x3/uL (130-400); RBC 3.36 10x6/uL (4.20-6.10); RDW 15.4 % (11.5-14.5); WBC 9.7 10x3/uL (4.8-10.8)
[2017-12-04 06:52] LABS: ALBUMIN 3.3 g/dL (3.4-5.0); ALKALINE PHOSPHATASE 66 U/L (46-116); ALT (SGPT) 25 U/L (10-68); BILIRUBIN - TOTAL 0.54 mg/dL (0.2-1.3); CALC OSMOLALITY 292 mosm/kg (275-300); CALCIUM 8.9 mg/dL (8.5-10.1); CARBON DIOXIDE 26.3 mmol/L (21.0-32.0); CHLORIDE - SERUM 90 mmol/L (98-107); CKMB 7.6 U/L (0.0-3.6); CREATINE KINASE 434 UL (21-232); GLUCOSE 162 mg/dL (74-106); POTASSIUM - SERUM 4.2 mmol/L (3.5-5.1); PROTEIN - SERUM 7.7 g/dL (6.4-8.2); SODIUM 132 mmol/L (136-145); UREA NITROGEN 81 mg/dL (7-18); eGFR NON AFRICAN AMERICAN 7 mL/min (90-120)
[2017-12-04 07:00] VITALS: BP 130/66
[2017-12-04 13:25] VITALS: Ht 188 cm; Wt 119.5 kg
[2017-12-04 16:39] VITALS: BP 111/49
[2017-12-04 20:00] VITALS: BP 107/47
[2017-12-05] VITALS: BP 112/51
[2017-12-05 05:41] LABS: BASOPHILS 0 % (0-2); EOSINOPHILS 0 % (0-7); HEMATOCRIT 31.7 % (42.0-54.0); HEMOGLOBIN 10.4 g/dL (13.5-17.5); IMMATURE GRANULOCYTES 0.2 % (0-5); LYMPHOCYTES 3.1 % (15-50); MCH 32.8 pg (26.0-34.0); MCHC 32.8 g/dL (31.0-37.0); MEAN PLATELET VOLUME 10.1 fL (7.4-10.4); MONOCYTES 3.2 % (2-11); NEUTROPHILS 93.5 % (40-80); PLATELET COUNT 172 10x3/uL (130-400); RBC 3.17 10x6/uL (4.20-6.10); RDW 15.2 % (11.5-14.5); WBC 8.6 10x3/uL (4.8-10.8)
[2017-12-05 06:02] LABS: ANION GAP 14.9 mmol/L (8-16); CALCIUM 8.1 mg/dL (8.5-10.1); CARBON DIOXIDE 29.5 mmol/L (21.0-32.0); CREATININE - SERUM 6.5 mg/dL (0.6-1.3); PHOSPHOROUS 5.2 mg/dL (2.5-4.9); POTASSIUM - SERUM 4.4 mmol/L (3.5-5.1)
[2017-12-05 06:06] LABS: TROPONIN-I 3.224 ng/mL (0.000-0.060)
[2017-12-05 09:01] VITALS: BP 112/58
[2017-12-05 15:17] VITALS: BP 120/57
[2017-12-05 20:00] VITALS: BP 122/58
[2017-12-06] VITALS: BP 108/61
[2017-12-06 04:00] VITALS: BP 125/61
[2017-12-06 05:25] LABS: BASOPHILS 0 % (0-2); EOSINOPHILS 0 % (0-7); HEMATOCRIT 31.9 % (42.0-54.0); HEMOGLOBIN 10.4 g/dL (13.5-17.5); IMMATURE GRANULOCYTES 0.3 % (0-5); LYMPHOCYTES 6.4 % (15-50); MCH 32.8 pg (26.0-34.0); MCHC 32.6 g/dL (31.0-37.0); MCV 100.6 fL (80.0-100.0); MEAN PLATELET VOLUME 10.4 fL (7.4-10.4); MONOCYTES 4.6 % (2-11); NEUTROPHILS 88.7 % (40-80); PLATELET COUNT 173 10x3/uL (130-400); RBC 3.17 10x6/uL (4.20-6.10); RDW 15.2 % (11.5-14.5); WBC 7.2 10x3/uL (4.8-10.8)
[2017-12-06 05:46] LABS: ANION GAP 9.6 mmol/L (8-16); CALCIUM 7.9 mg/dL (8.5-10.1); CARBON DIOXIDE 29.9 mmol/L (21.0-32.0); CREATININE - SERUM 5.3 mg/dL (0.6-1.3); PHOSPHOROUS 5.8 mg/dL (2.5-4.9); POTASSIUM - SERUM 4.5 mmol/L (3.5-5.1)
[2017-12-06 08:21] VITALS: BP 125/72
[2017-12-06 11:46] VITALS: BP 117/49
[2017-12-06 15:49] VITALS: BP 122/53
[2017-12-06 21:06] VITALS: BP 127/70
[2017-12-07 00:50] VITALS: BP 128/63
[2017-12-07 05:59] VITALS: BP 199/66
[2017-12-07 06:09] LABS: BASOPHILS 0 % (0-2); EOSINOPHILS 0 % (0-7); HEMOGLOBIN 10.2 g/dL (13.5-17.5); IMMATURE GRANULOCYTES 0.3 % (0-5); LYMPHOCYTES 6.5 % (15-50); MCH 32.6 pg (26.0-34.0); MCHC 32.9 g/dL (31.0-37.0); MEAN PLATELET VOLUME 9.8 fL (7.4-10.4); MONOCYTES 5.4 % (2-11); NEUTROPHILS 87.8 % (40-80); PLATELET COUNT 174 10x3/uL (130-400); RBC 3.13 10x6/uL (4.20-6.10); RDW 14.8 % (11.5-14.5); WBC 6.5 10x3/uL (4.8-10.8)
[2017-12-07 06:24] LABS: ANION GAP 17.6 mmol/L (8-16); CALCIUM 7.4 mg/dL (8.5-10.1); CARBON DIOXIDE 27.7 mmol/L (21.0-32.0); POTASSIUM - SERUM 4.3 mmol/L (3.5-5.1)
[2017-12-07 06:38] LABS: CREATININE - SERUM 7.4 mg/dL (0.6-1.3)
[2017-12-07 08:13] VITALS: BP 119/62
[2017-12-07 12:04] VITALS: BP 124/58
[2017-12-07 15:46] VITALS: BP 122/64
[2017-12-07 22:00] VITALS: BP 126/67
[2017-12-08] VITALS (7 sets, daily range): BP systolic 121–147; BP diastolic 59–77
[2017-12-08 06:12] LABS: BASOPHILS 0 % (0-2); EOSINOPHILS 0.1 % (0-7); HEMATOCRIT 30.2 % (42.0-54.0); HEMOGLOBIN 10.2 g/dL (13.5-17.5); IMMATURE GRANULOCYTES 0.6 % (0-5); LYMPHOCYTES 5.7 % (15-50); MCH 32.9 pg (26.0-34.0); MCHC 33.8 g/dL (31.0-37.0); MCV 97.4 fL (80.0-100.0); MEAN PLATELET VOLUME 9.7 fL (7.4-10.4); MONOCYTES 5.3 % (2-11); NEUTROPHILS 88.3 % (40-80); PLATELET COUNT 198 10x3/uL (130-400); RDW 14.9 % (11.5-14.5)
[2017-12-08 06:19] LABS: WBC 8.3 10x3/uL (4.8-10.8)
[2017-12-08 06:31] LABS: ANION GAP 17.8 mmol/L (8-16); CARBON DIOXIDE 27.1 mmol/L (21.0-32.0); CREATININE - SERUM 8.4 mg/dL (0.6-1.3); PHOSPHOROUS 6.2 mg/dL (2.5-4.9); POTASSIUM - SERUM 4.9 mmol/L (3.5-5.1)
[2017-12-09] VITALS (7 sets, daily range): BP systolic 116–140; BP diastolic 48–104
[2017-12-09 05:54] LABS: BASOPHILS 0 % (0-2); EOSINOPHILS 0 % (0-7); HEMATOCRIT 30.1 % (42.0-54.0); HEMOGLOBIN 10.1 g/dL (13.5-17.5); IMMATURE GRANULOCYTES 1.1 % (0-5); LYMPHOCYTES 4.4 % (15-50); MCH 32.7 pg (26.0-34.0); MCHC 33.6 g/dL (31.0-37.0); MCV 97.4 fL (80.0-100.0); MEAN PLATELET VOLUME 9.5 fL (7.4-10.4); MONOCYTES 6.1 % (2-11); NEUTROPHILS 88.4 % (40-80); PLATELET COUNT 225 10x3/uL (130-400); RBC 3.09 10x6/uL (4.20-6.10); RDW 14.6 % (11.5-14.5); WBC 9.7 10x3/uL (4.8-10.8)
[2017-12-09 06:19] LABS: ANION GAP 14.5 mmol/L (8-16); CALCIUM 7.1 mg/dL (8.5-10.1); CARBON DIOXIDE 29.7 mmol/L (21.0-32.0); PHOSPHOROUS 4.9 mg/dL (2.5-4.9); POTASSIUM - SERUM 5.2 mmol/L (3.5-5.1)
[2017-12-09 06:29] LABS: CREATININE - SERUM 6.2 mg/dL (0.6-1.3)
[2017-12-10 04:19] VITALS: BP 121/56
[2017-12-10 04:50] LABS: BASOPHILS 0.1 % (0-2); EOSINOPHILS 0.3 % (0-7); HEMATOCRIT 28.1 % (42.0-54.0); HEMOGLOBIN 9.6 g/dL (13.5-17.5); IMMATURE GRANULOCYTES 1.2 % (0-5); LYMPHOCYTES 12.4 % (15-50); MCH 33.1 pg (26.0-34.0); MCHC 34.2 g/dL (31.0-37.0); MCV 96.9 fL (80.0-100.0); MEAN PLATELET VOLUME 9.9 fL (7.4-10.4); MONOCYTES 10.6 % (2-11); NEUTROPHILS 75.4 % (40-80); PLATELET COUNT 223 10x3/uL (130-400); RDW 14.5 % (11.5-14.5)
[2017-12-10 05:10] LABS: ANION GAP 14.8 mmol/L (8-16); CALCIUM 7.3 mg/dL (8.5-10.1); CARBON DIOXIDE 29.9 mmol/L (21.0-32.0); CREATININE - SERUM 7.4 mg/dL (0.6-1.3); POTASSIUM - SERUM 4.7 mmol/L (3.5-5.1)
[2017-12-10 05:10] LABS: WBC 12.2 10x3/uL (4.8-10.8)
[2017-12-10 08:04] VITALS: BP 104/74
[2017-12-10 16:32] VITALS: BP 110/50
[2017-12-10 20:00] VITALS: BP 125/56
[2017-12-11] VITALS: BP 125/59
[2017-12-11 04:00] VITALS: BP 101/53
[2017-12-11 04:45] LABS: BASOPHILS 0.1 % (0-2); EOSINOPHILS 0 % (0-7); HEMATOCRIT 25.9 % (42.0-54.0); HEMOGLOBIN 8.7 g/dL (13.5-17.5); IMMATURE GRANULOCYTES 1.3 % (0-5); LYMPHOCYTES 3.3 % (15-50); MCH 32.5 pg (26.0-34.0); MCHC 33.6 g/dL (31.0-37.0); MCV 96.6 fL (80.0-100.0); MEAN PLATELET VOLUME 9.6 fL (7.4-10.4); MONOCYTES 5.4 % (2-11); NEUTROPHILS 89.9 % (40-80); PLATELET COUNT 211 10x3/uL (130-400); RBC 2.68 10x6/uL (4.20-6.10); RDW 14.9 % (11.5-14.5); WBC 9.9 10x3/uL (4.8-10.8)
[2017-12-11 05:06] LABS: ANION GAP 12.1 mmol/L (8-16); CALCIUM 7.3 mg/dL (8.5-10.1); CARBON DIOXIDE 29.5 mmol/L (21.0-32.0); PHOSPHOROUS 4.8 mg/dL (2.5-4.9); POTASSIUM - SERUM 4.6 mmol/L (3.5-5.1)
[2017-12-11 05:07] LABS: CREATININE - SERUM 5.5 mg/dL (0.6-1.3)
[2017-12-11] MEDS ORDERED: LEVAQUIN250 MG PO (07:58)
[2017-12-11] MEDS ORDERED: IPRAT-ALBUT 0.5-3 ML INH (08:00)
[2017-12-11] MEDS ORDERED: PREDNISONE10 MG PO (08:03)
[2017-12-11 08:25] VITALS: BP 129/81
== END 2017-12-11 11:25 | disposition home health service (06) | DRG 280 ==
LOC: D.ER 16:39 → D.M2 19:53
PROVIDERS: Family Medicine; Internal Medicine Nephrology
DX: I50.43 Acute on chronic combined systolic (congestive) and diastolic (congestive) heart failure (principal); J18.9 Pneumonia, unspecified organism; I21.A1 Myocardial infarction type 2; J96.21 Acute and chronic respiratory failure with hypoxia; N18.6 End stage renal disease; I13.2 Hypertensive heart and chronic kidney disease with heart failure and with stage 5 chronic kidney disease, or end stage renal disease; J44.0 Chronic obstructive pulmonary disease with (acute) lower respiratory infection; J44.1 Chronic obstructive pulmonary disease with (acute) exacerbation; J98.11 Atelectasis; I50.23 Acute on chronic systolic (congestive) heart failure; K21.9 Gastro-esophageal reflux disease without esophagitis; I27.20 Pulmonary hypertension, unspecified; F17.200 Nicotine dependence, unspecified, uncomplicated; D63.1 Anemia in chronic kidney disease; E83.39 Other disorders of phosphorus metabolism; I35.0 Nonrheumatic aortic (valve) stenosis; Z86.73 Personal history of transient ischemic attack (TIA), and cerebral infarction without residual deficits

== ENCOUNTER 2018-08-23 22:54 | Inpatient (IN) | payer MEDICARE, OTHER ==
[~2018-08-23] VITALS: Ht 188 cm; Wt 100.7 kg
[~2018-08-23 22:54] MED LIST changes: +ADVAIR HFA [SP]12 GM INH; +IPRAT-ALBUT 0.5-3 ML INH; +MIDODRINE HCL5 MG PO; +NEPHRO-VITE RX1 TAB PO; +PREDNISONE10 MG PO; +PROAIR HFA8.5 GM INH
[2018-08-23] MEDS ORDERED: ELIQUIS2.5 MG PO (23:33)
[2018-08-23] MEDS ORDERED: NEPHRO-VITE RX1 TAB PO (23:34)
[2018-08-23] MEDS ORDERED: CIPRO250 MG PO (23:34)
[2018-08-23 23:43] LABS: HEMATOCRIT 36.7 % (42.0-54.0); HEMOGLOBIN 12.4 g/dL (13.5-17.5); LYMPHOCYTES 4.5 % (15-50); MCH 36.3 pg (26.0-34.0); MCHC 33.8 g/dL (31.0-37.0); MCV 107.3 fL (80.0-100.0); MEAN PLATELET VOLUME 9.6 fL (7.4-10.4); NEUTROPHILS 88.4 % (40-80); RBC 3.42 10x6/uL (4.20-6.10); RDW 14.5 % (11.5-14.5); WBC 12.6 10x3/uL (4.8-10.8)
[2018-08-23 23:44] LABS: PLATELET COUNT 162 10x3/uL (130-400)
[2018-08-23 23:54] LABS: APTT 28.5 SECONDS (22.8-39.4); INR 1.43 (0.85-1.17); PROTIME 16.9 SECONDS (11.6-15.0)
[2018-08-23 23:55] LABS: D-DIMER-QUANTITATIVE 3.06 ug/mLFEU (0.20-0.54)
[2018-08-24] VITALS (15 sets, daily range): BP systolic 91–116; BP diastolic 41–70; BMI 28.5
[2018-08-24 00:01] LABS: ALBUMIN 3.3 g/dL (3.4-5.0); ALKALINE PHOSPHATASE 81 U/L (46-116); ALT (SGPT) 32 U/L (10-68); BILIRUBIN - TOTAL 0.99 mg/dL (0.2-1.3); CALC OSMOLALITY 296 mosm/kg (275-300); CALCIUM 7.8 mg/dL (8.5-10.1); CARBON DIOXIDE 25.8 mmol/L (21.0-32.0); CHLORIDE - SERUM 97 mmol/L (98-107); CREATININE - SERUM 8.1 mg/dL (0.6-1.3); GLUCOSE 169 mg/dL (74-106); POTASSIUM - SERUM 3.8 mmol/L (3.5-5.1); PROTEIN - SERUM 7.4 g/dL (6.4-8.2); SODIUM 139 mmol/L (136-145); UREA NITROGEN 55 mg/dL (7-18); eGFR NON AFRICAN AMERICAN 7 mL/min (90-120)
[2018-08-24 00:12] LABS: CKMB 3.9 U/L (0.0-3.6); CREATINE KINASE 155 UL (21-232); TROPONIN-I 0.053 ng/mL (0.000-0.060)
[2018-08-24 00:13] LABS: PRO BNP 60965 pg/mL (0-450)
[2018-08-24 05:13] LABS: BASOPHILS 0.2 % (0-2); EOSINOPHILS 0.2 % (0-7); HEMATOCRIT 33.8 % (42.0-54.0); HEMOGLOBIN 11.1 g/dL (13.5-17.5); IMMATURE GRANULOCYTES 0.4 % (0-5); MCH 35.7 pg (26.0-34.0); MCHC 32.8 g/dL (31.0-37.0); MCV 108.7 fL (80.0-100.0); MEAN PLATELET VOLUME 10.3 fL (7.4-10.4); MONOCYTES 7.1 % (2-11); NEUTROPHILS 89.1 % (40-80); PLATELET COUNT 139 10x3/uL (130-400); RBC 3.11 10x6/uL (4.20-6.10); RDW 14.5 % (11.5-14.5); WBC 11.7 10x3/uL (4.8-10.8)
[2018-08-24 05:51] LABS: ALKALINE PHOSPHATASE 69 U/L (46-116); BILIRUBIN - TOTAL 0.82 mg/dL (0.2-1.3); CALC OSMOLALITY 299 mosm/kg (275-300); CALCIUM 7.6 mg/dL (8.5-10.1); CARBON DIOXIDE 25.1 mmol/L (21.0-32.0); CHLORIDE - SERUM 99 mmol/L (98-107); CKMB 5.9 U/L (0.0-3.6); CREATINE KINASE 212 UL (21-232); CREATININE - SERUM 8.4 mg/dL (0.6-1.3); GLUCOSE 147 mg/dL (74-106); POTASSIUM - SERUM 4.2 mmol/L (3.5-5.1); PROTEIN - SERUM 6.9 g/dL (6.4-8.2); SODIUM 140 mmol/L (136-145); UREA NITROGEN 62 mg/dL (7-18); eGFR NON AFRICAN AMERICAN 6 mL/min (90-120)
[2018-08-24 05:54] LABS: ALT (SGPT) 59 U/L (10-68)
[2018-08-24 05:55] LABS: TROPONIN-I 0.095 ng/mL (0.000-0.060)
[2018-08-24] MEDS ORDERED: MELATONIN10 M1 PO (09:46)
[2018-08-25] VITALS: BP 132/95
[2018-08-25 01:03] VITALS: BP 189/62
[2018-08-25 04:00] VITALS: BP 125/67
[2018-08-25 06:53] LABS: BASOPHILS 0.2 % (0-2); EOSINOPHILS 0.6 % (0-7); HEMATOCRIT 35.8 % (42.0-54.0); HEMOGLOBIN 11.9 g/dL (13.5-17.5); IMMATURE GRANULOCYTES 0.4 % (0-5); LYMPHOCYTES 3.5 % (15-50); MCHC 33.2 g/dL (31.0-37.0); MCV 108.2 fL (80.0-100.0); MEAN PLATELET VOLUME 10.7 fL (7.4-10.4); MONOCYTES 7.6 % (2-11); NEUTROPHILS 87.7 % (40-80); PLATELET COUNT 139 10x3/uL (130-400); RBC 3.31 10x6/uL (4.20-6.10); RDW 14.5 % (11.5-14.5); WBC 11.8 10x3/uL (4.8-10.8)
[2018-08-25 06:55] LABS: ALBUMIN 3.3 g/dL (3.4-5.0); ANION GAP 21.6 mmol/L (8-16); BILIRUBIN - TOTAL 0.86 mg/dL (0.2-1.3); CALCIUM 7.6 mg/dL (8.5-10.1); CARBON DIOXIDE 25.9 mmol/L (21.0-32.0); CREATININE - SERUM 10.3 mg/dL (0.6-1.3); POTASSIUM - SERUM 4.5 mmol/L (3.5-5.1); PROTEIN - SERUM 7.5 g/dL (6.4-8.2)
[2018-08-25 12:06] VITALS: BMI 28.5
[2018-08-25 12:10] VITALS: Ht 188 cm; Wt 100.7 kg
[2018-08-25 13:00] VITALS: BP 142/107
[2018-08-25 14:00] VITALS: BP 74/41
[2018-08-25 14:06] LABS: BASOPHILS 0.6 % (0-2); EOSINOPHILS 0.2 % (0-7); HEMATOCRIT 38.2 % (42.0-54.0); HEMOGLOBIN 12.5 g/dL (13.5-17.5); IMMATURE GRANULOCYTES 1.6 % (0-5); LYMPHOCYTES 5.2 % (15-50); MCH 35.9 pg (26.0-34.0); MCHC 32.7 g/dL (31.0-37.0); MCV 109.8 fL (80.0-100.0); MEAN PLATELET VOLUME 10.4 fL (7.4-10.4); MONOCYTES 6.6 % (2-11); NEUTROPHILS 85.8 % (40-80); PLATELET COUNT 137 10x3/uL (130-400); RBC 3.48 10x6/uL (4.20-6.10); RDW 14.7 % (11.5-14.5)
[2018-08-25 14:10] LABS: WBC 19.5 10x3/uL (4.8-10.8)
[2018-08-25 14:18] LABS: ALBUMIN 3.2 g/dL (3.4-5.0); ANION GAP 19.7 mmol/L (8-16); BILIRUBIN - TOTAL 0.89 mg/dL (0.2-1.3); CALCIUM 9.4 mg/dL (8.5-10.1); CARBON DIOXIDE 26.1 mmol/L (21.0-32.0); POTASSIUM - SERUM 4.8 mmol/L (3.5-5.1); PROTEIN - SERUM 7.8 g/dL (6.4-8.2)
[2018-08-25 14:23] LABS: MAGNESIUM - SERUM 2.3 mg/dL (1.8-2.4)
[2018-08-25 14:26] LABS: CREATININE - SERUM 5.9 mg/dL (0.6-1.3); PHOSPHOROUS 9.7 mg/dL (2.5-4.9)
[2018-08-25 15:00] VITALS: BP 91/57
--- NOTE | 2018-09-01 11:18 | CN ---
PATIENT NAME:AIDEN ESPITIA MEDICAL RECORD: [id number] : 38 LOCATION:STEPHIE.2313 ADMIT DATE: 08/24/18 ACCOUNT: [id number] CONSULTING PHYSICIAN: ALICIA DE LOS SANTOS MD REFERRING PHYSICIAN: LUIS JENKINS MD DATE OF CONSULTATION: 08/25/2018 CARDIOLOGY CONSULTATION DIAGNOSES: 1. Shortness of breath. 2. Pulmonary edema. 3. Abnormal ECG. 4. Hypertension. 5. End-stage renal failure, on dialysis. 6. Atrial fibrillation. HISTORY OF PRESENT ILLNESS: This is a gentleman who has mostly had shortness of breath, some chest pain over just the past week. He was found to be in atrial fibrillation with rapid ventricular response. This is new for him. His EKG suggests a previous anterolateral myocardial infarction, but no acute ischemic changes. Troponin is pending. He had 4 liters removed on dialysis yesterday, still remains on BiPAP and very short of breath. He is on a Cardizem drip at 5. His heart rate is in the 120s. PHYSICAL EXAMINATION: GENERAL APPEARANCE: Well-nourished, well-developed, appears stated age. Level of distress, comfortable. PSYCHIATRIC: Mental status, alert, normal affect. Orientation, oriented to time, place and person. EYES: Lids and conjunctiva, noninjected. No discharge, no pallor. ENT: Lips, teeth, gums, normal dentition. Oropharynx, no cyanosis, no pallor. NECK: Carotid arteries, bilateral normal upstroke, no bruits, no thrills. JUGULAR VEINS: No jugular venous pressure or distention. CERVICAL LYMPH NODES: Nontender, nonenlarged. THYROID: Not enlarged. Nontender. No nodules. LUNGS: Respiratory effort, unlabored. CHEST: Normal curvature. No thoracic deformity. No chest wall tenderness. Percussion, resonant. Auscultation, clear. No wheezes, no rales, no rhonchi. CARDIOVASCULAR: Precordial exam, nondisplaced. No heaves or pericardial thrills. Rate and rhythm, regular. Heart sounds, normal S1, normal S2. No S3, no gallop, no rub. Systolic murmur, not heard. Diastolic murmur, not heard. EXTREMITIES: No cyanosis, no edema. Peripheral pulses, full and equal in all extremities, except as noted. No bruits appreciated. ABDOMEN: Soft, nondistended. Normal aorta. No bruit. Nontender. No masses. Liver, nontender, no hepatomegaly. Spleen, nontender, no splenomegaly. MUSCULOSKELETAL: No joint tenderness. No joint swelling. No erythema. NEUROLOGICAL: Normal gait, normal strength, normal tone. SKIN: Warm and dry. OVERALL IMPRESSION: Shortness of breath, pulmonary edema, this is most likely cardiac. The atrial fibrillation is most likely ischemic. We will get an echocardiogram today, start him on sotalol 120 mg b.i.d., give him Plavix. Plan for echocardiogram today and possible cardiac catheterization in a.m. CONSULT REPORT [id number] AIDEN ESPITIA TRANSINT:[id number] Voice Confirmation ID: [id number] DOCUMENT ID: [id number] ALICIA DE LOS SANTOS MD at 1118 CC: [id number] DICTATION DATE: 08/25/18 08 DIESEL INSPECTOR: 08/25/18 08 DIS IN 08/25/18 [id number] [place] [address]
--- NOTE | 2018-09-01 11:18 | EC ---
PATIENT:AIDEN ESPITIA DATE OF SERVICE: 08/24/18 SEX: M MEDICAL RECORD: [id number] DATE OF : 38 LOCATION:[place] [address] AGE OF PATIENT: 78 ADMISSION DATE: 08/24/18 REFERRING PHYSICIAN: INTERPRETING PHYSICIAN: ALICIA CRAWLEY MD ECHOCARDIOGRAM REPORT ECHO CHARGES 4 ECHO COMPLETE Date: 08/25/18 CLINICAL DIAGNOSIS: SOB HX OF TAVR CAD/STENTS ECHOCARDIOGRAPHIC MEASUREMENTS (adult normal given) AC root (d.<3.7cm) 3.1 cm LV Septum d (<1.2 cm> 1.5 cm Valve Excursion 1.5 cm LV Septum (systole) 2.0 cm Left Atria (s.<4.0cm> 4.1 cm LVPW d(<1.2cm) 1.8 cm RV (d.<2.3cm) 4.0 cm LVPW (sytole) 2.0 cm LV diastole(<5.6CM) 4.8 cm MV E-F(>70mm/sec) cm LV systole 2.9 cm LVOT Diameter 1.7 cm MV exc.(>10mm) cm Est.ejection fraction (50-75%) % DOPPLER: LVIT cm/sec A cm/sec E 163 cm/sec LA cm/sec RVSP 53 mmHg LVOT 112 cm/sec AOP1/2T m/s Asc. Ao 197 cm/sec RVOT 89 cm/sec RA cm/sec PA 151 cm/sec AV Gradient Peak 15.45mmHg AV Mean 9.43 mmHg AV Area 1.5 cm MV Gradient Peak 3.05 mmHg MV Mean 1.16 mmHg MV Area cm COMMENTS: Recreational Resort Manager: Wilfredo CASTILLO Social Security Benefits Interviewer: 1 Dr. Crawley TAPE# PACVS Pericardial Effusion N DATE OF SERVICE: 08/25/2018 ECHOCARDIOGRAM FINDINGS: 1. Left ventricular chamber size is within normal limits. Left ventricular systolic function is normal. Overall ejection fraction estimated at 55%. 2. Left atrium is enlarged at 4.1 cm. Right atrium and right ventricle chamber sizes are moderately dilated. 3. 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 The remaining valvular structures have normal structure and motion. 4. Doppler interrogation reveals moderate tricuspid regurgitation. No other valvular insufficiency or stenosis. Pulmonary systolic pressure is elevated, estimated at 53 mmHg. 5. No evidence of pericardial effusion or left ventricular thrombus. TRANSINT:[id number] Voice Confirmation ID: [id number] DOCUMENT ID: [id number] ALICIA CRAWLEY MD at 1118 CC: [id number] DICTATION DATE: 08/25/18 1154 CHANGE MANAGEMENT CONSULTANT: 08/25/18 1228 DIS IN 08/25/18 [address] [id number] [place] [address]
== END 2018-08-25 20:00 | DRG 291 ==
LOC: D.ER 22:54 → D.M2 08-24 02:23 → D.MS 08-24 02:23 → D.M2 08-24 08:50 → D.ICU 08-25 13:42
PROVIDERS: Family Medicine; ADMIT Internal Medicine Nephrology
PROC: 5A1935Z Respiratory Ventilation, Less than 24 Consecutive Hours (ICD-10-PCS; principal; 2018-08-25)
PROC: 0BH17EZ Insertion of Endotracheal Airway into Trachea, Via Natural or Artificial Opening (ICD-10-PCS; 2018-08-25)
DX: I13.2 Hypertensive heart and chronic kidney disease with heart failure and with stage 5 chronic kidney disease, or end stage renal disease (principal); N18.6 End stage renal disease; J96.01 Acute respiratory failure with hypoxia; G93.41 Metabolic encephalopathy; N39.0 Urinary tract infection, site not specified; G93.1 Anoxic brain damage, not elsewhere classified; I48.91 Unspecified atrial fibrillation; E11.22 Type 2 diabetes mellitus with diabetic chronic kidney disease; Z99.2 Dependence on renal dialysis; F17.200 Nicotine dependence, unspecified, uncomplicated; E78.5 Hyperlipidemia, unspecified; I50.9 Heart failure, unspecified; J44.9 Chronic obstructive pulmonary disease, unspecified; M19.90 Unspecified osteoarthritis, unspecified site; N25.0 Renal osteodystrophy; D63.1 Anemia in chronic kidney disease; Z66 Do not resuscitate; B96.1 Klebsiella pneumoniae [K. pneumoniae] as the cause of diseases classified elsewhere; G89.29 Other chronic pain; R53.81 Other malaise